=== PATIENT | female | born 1950 | race Caucasian/White ===

== ENCOUNTER → 2018-01-17 | Outpatient (CLI) | payer MEDICARE, OTHER ==
[~2018-01-17] MED LIST: AMLO10 PO; GLIP5 PO; HYDCHL25 PO; INSDET100 SUBQ; LOSA50 PO; METF500 PO; PRAV20 PO; SAXA2.5T PO
[2018-01-17 17:28] LABS: Microalb/Creat Ratio UR, Rand 25.672 mg/g (0.000-30.000); Microalbumin, Random Urine 17.2 mg/L (0.000-20.000)
== END ==
LOC: LAB SHORT 14:00 → LAB 14:00
PROVIDERS: Nurse Practitioner Family
DX: E11.65 Type 2 diabetes mellitus with hyperglycemia (principal)
CPT/HCPCS: 82043; 82570

== ENCOUNTER → 2019-04-06 | Outpatient (CLI) | payer MEDICARE, OTHER ==
[2019-04-10 15:07] LABS: HPV 16 Negative (Negative); HPV 18 Negative (Negative); HPV OTHER HR TYPES Negative (Negative)
== END | disposition home or self-care (01) ==
LOC: LAB SHORT 13:39 → LAB 13:39
PROVIDERS: Nurse Practitioner Women's Health
DX: Z12.4 Encounter for screening for malignant neoplasm of cervix (principal); Z91.89 Other specified personal risk factors, not elsewhere classified
CPT/HCPCS: 87624; G0123

== ENCOUNTER 2019-08-15 08:15 | Day surgery (SDC) | payer MEDICARE, OTHER ==
[~2019-08-15] VITALS: Ht 152.4 cm; Wt 105.2 kg
[~2019-08-15 08:15] MED LIST changes: +ATOR20 PO; +Bystolic10 MG PO; +LOSARTAN-HCTZ1 EACH PO; +NOVOLOG100 UNIT/1 SC; +TOUJEO MAX300 UNIT/1 SC
--- NOTE | 2019-08-15 09:03 | NUR ---
Ambulatory in Day SurgeryPatient states colon prep results clear. History, Chart, Medications and Allergies reviewed before start of procedure.Lungs clear T/O to Auscultation. Patient confirms NPO status and agrees with scheduled surgery. Patient States Post-Procedure ride home has been arranged.
--- NOTE | 2019-08-15 10:18 | NUR ---
08/15/19 1018 Johanna Fletcher History, Chart, Medications and Allergies reviewed before start of procedure. MONITOR INTACT WITH CONTINUOUS PULSE OXIMETRY AND INTERMITTENT BP. PATIENT CONFIRMS NPO STATUS AND AGREES WITH SCHEDULED PROCEDURE. 3-LEAD EKG REVIEWED WITH PHYSICIAN PRIOR TO START OF PROCEDURE. O2 VIA N/C INTACT THROUGHOUT SEDATION/PROCEDURE. PATIENT DETERMINED TO BE ASA APPROPRIATE FOR PROPOFOL SEDATION PRIOR TO START OF PROCEDURE BY DR. YUAN.
--- NOTE | 2019-08-15 11:29 | NUR ---
Patient up to Ambulate independently. Gait steady. Discharge instructions reviewed with patient. Patient verbalizes understanding. Copy given to patient to take home. PER DR. YUAN PT TO KEEP FOLLOW UP APPOINTMENT ON August AT 3PM AND ANOTHER COLONOSCOPY IN 5 YEARS. Discharged via wheelchair to private car for ride home WITH .
== END 2019-08-15 11:25 | disposition home or self-care (01) ==
LOC: ORSCMMR 08:15 → ORD 09:30 → ORSCMMR 09:30
PROVIDERS: Internal Medicine Gastroenterology
PROC: 0DBK8ZX Excision of Ascending Colon, Via Natural or Artificial Opening Endoscopic, Diagnostic (ICD-10-PCS; principal; 2019-08-15 09:30)
PROC: 0DBL8ZX Excision of Transverse Colon, Via Natural or Artificial Opening Endoscopic, Diagnostic (ICD-10-PCS; principal; 2019-08-15 09:30)
PROC: 0DBN8ZX Excision of Sigmoid Colon, Via Natural or Artificial Opening Endoscopic, Diagnostic (ICD-10-PCS; principal; 2019-08-15 09:30)
DX: Z12.11 Encounter for screening for malignant neoplasm of colon (principal); Z80.0 Family history of malignant neoplasm of digestive organs; D12.2 Benign neoplasm of ascending colon; E11.9 Type 2 diabetes mellitus without complications; I10 Essential (primary) hypertension; E78.00 Pure hypercholesterolemia, unspecified; Z79.84 Long term (current) use of oral hypoglycemic drugs; E66.9 Obesity, unspecified; Z68.42 Body mass index [BMI] 45.0-49.9, adult; Z79.4 Long term (current) use of insulin; Z79.899 Other long term (current) drug therapy
CPT/HCPCS: 82947; 88305; J2250; J3010; J7120

== ENCOUNTER → 2020-06-30 | Outpatient (CLI) | payer MEDICARE, OTHER ==
[2020-06-30 15:39] LABS: Creatinine, Urine Random 99.9 mg/dL (27.00-270.00); Microalb/Creat Ratio UR, Rand 8.258 mg/g (0.000-30.000); Microalbumin, Random Urine 8.25 mg/L (0.000-20.000)
== END ==
LOC: LAB 12:30 → LAB SHORT 12:30 → LAB FUT 06-13 12:30
PROVIDERS: Physician Assistant Medical
DX: E11.8 Type 2 diabetes mellitus with unspecified complications (principal); Z79.4 Long term (current) use of insulin
CPT/HCPCS: 82043; 82570

== ENCOUNTER → 2022-01-25 | Outpatient (CLI) | payer MEDICARE, OTHER | END | disposition home or self-care (01) | LOC: LAB SHORT 15:38 → LAB 15:38 | DX: R35.0 Frequency of micturition (principal) | CPT/HCPCS: 87077; 87086; 87186 ==

== ENCOUNTER 2024-10-03 07:18 | Day surgery (SDC) | payer MEDICARE, OTHER ==
[~2024-10-03] VITALS: Ht 152.4 cm; Wt 99.9 kg
[~2024-10-03 07:18] MED LIST changes: +Lactated Ringer's 1,000 ML IV SCH
[2024-10-03 08:15] VITALS: BP 148/59
[2024-10-03] MEDS ORDERED: propofoL 40 ML IV ONE (09:53)
--- NOTE | 2024-10-03 10:01 | NUR ---
10/03/24 1001 Edgar Huff MONITOR INTACT WITH CONTINUOUS PULSE OXIMETRY, CONTINUOUS END TITAL CO2, 3-LEAD EKG AND INTERMITTENT BLOOD PRESSURE. ANESTHESIA PER DR. SAMSON
[2024-10-03 10:25] VITALS: BP 125/64
[2024-10-03 10:50] VITALS: BP 124/47
--- NOTE | 2024-10-03 10:59 | NUR ---
Discharge instructions reviewed with patient. Patient verbalizes understanding. Copy given to patient to take home. PT TOLERATING WATER WELL. Discharged via wheelchair to private car for ride home.
== END 2024-10-03 10:52 | disposition home or self-care (01) ==
LOC: ORSCMMR 07:18 → ORD 09:00 → ORSCMMR 09:00
PROVIDERS: Internal Medicine Gastroenterology
PROC: 0DBK8ZX Excision of Ascending Colon, Via Natural or Artificial Opening Endoscopic, Diagnostic (ICD-10-PCS; principal; 2024-10-03 09:00)
DX: Z12.11 Encounter for screening for malignant neoplasm of colon (principal); D12.2 Benign neoplasm of ascending colon; K57.30 Diverticulosis of large intestine without perforation or abscess without bleeding; K64.8 Other hemorrhoids; Z80.0 Family history of malignant neoplasm of digestive organs; Z86.0101 Personal history of adenomatous and serrated colon polyps; E11.9 Type 2 diabetes mellitus without complications; I10 Essential (primary) hypertension; E66.01 Morbid (severe) obesity due to excess calories; Z68.41 Body mass index [BMI] 40.0-44.9, adult; Z79.4 Long term (current) use of insulin; Z79.84 Long term (current) use of oral hypoglycemic drugs; Z79.899 Other long term (current) drug therapy
CPT/HCPCS: 82947; 88305; J2704; J7120

== ENCOUNTER 2024-11-01 14:46 | Emergency (ER) | payer MEDICARE, OTHER ==
[~2024-11-01] VITALS: Ht 152.4 cm; Wt 97.5 kg
[~2024-11-01 14:46] MED LIST changes: -Lactated Ringer's 1,000 ML IV SCH
[2024-11-01 15:36] LABS: BASOPHILS ABSOLUTE AUTO 0.07 K/mm3 (0.00-0.23); BASOPHILS PERCENT AUTO 1 % (0-2); EOSINOPHILS ABSOLUTE AUTO 0.16 K/mm3 (0.00-0.68); EOSINOPHILS PERCENT AUTO 2 % (0-6); Hematocrit 41.4 % (33.0-51.0); IMMATURE GRAN ABSOLUTE AUTO 0.02 K/mm3 (0.00-0.10); IMMATURE GRAN PERCENT AUTO 0 % (0-1); LYMPHOCYTES ABSOLUTE AUTO 2.58 K/mm3 (0.84-5.20); LYMPHOCYTES PERCENT AUTO 28 % (21-46); MONOCYTES ABSOLUTE AUTO 1.11 K/mm3 (0.16-1.47); MONOCYTES PERCENT AUTO 12 % (4-13); Mean Corpuscular HGB 29.9 pg (26.0-34.0); Mean Corpuscular HGB Conc 33.8 g/dL (31.5-36.5); Mean Corpuscular Volume 88 fL (80-100); Mean Platelet Volume 10.2 fL (9.1-12.4); NEUTROPHILS PERCENT AUTO 57 % (41-73); Platelet Count 240 K/mm3 (150-400); RDW Coefficient Variation 13.8 % (11.7-14.2); RDW Standard Deviation 44.2 fL (35.1-46.3); Red Blood Cell Count 4.69 M/mm3 (3.80-5.20); White Blood Cell Count 9.14 K/mm3 (4.00-11.30)
[2024-11-01 15:38] LABS: Albumin, Blood 3.6 g/dL (3.4-5.0); Albumin/Globulin Ratio 0.9 (0.8-1.8); Bilirubin, Total 1.2 mg/dL (0.1-1.0); Calcium, Blood 9.4 mg/dL (8.5-10.1); Creatinine, Blood 1.22 mg/dL (0.40-1.00); Globulin, Blood 3.9 g/dL (2.2-4.0); Potassium, Blood 3.6 mmol/L (3.5-5.5); Total Protein, Blood 7.5 g/dL (6.4-8.2)
[2024-11-01] MEDS ORDERED: METFORMIN HCL500 M3 PO (17:18)
[2024-11-01] MEDS ORDERED: NEBIVOLOL HCL10 MG PO (17:18)
[2024-11-01] MEDS ORDERED: INSULIN GL300 UNIT/1 SC (17:19)
[2024-11-01] MEDS ORDERED: LOSARTAN-HCTZ1 EAC5 PO (17:19)
[2024-11-01] MEDS ORDERED: HUMALOG KW200 UNIT/2 SC (17:19)
[2024-11-01] MEDS ORDERED: ATORVASTATIN CA20 MG PO (17:19)
[2024-11-01 17:59] VITALS: BP 133/56
== END 2024-11-01 18:03 | disposition home or self-care (01) ==
LOC: ER 14:46
PROVIDERS: Emergency Medicine
DX: R00.2 Palpitations (principal); E11.9 Type 2 diabetes mellitus without complications; I10 Essential (primary) hypertension; Z79.4 Long term (current) use of insulin; Z79.84 Long term (current) use of oral hypoglycemic drugs; Z79.899 Other long term (current) drug therapy
CPT/HCPCS: 71046; 80053; 84443; 84484; 85025; 93005; 93010; 99284-25